=== PATIENT | female | born 1995 | race African-American/Black ===

== ENCOUNTER 2018-03-15 20:10 | Emergency (ER) | payer SELFPAY ==
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
[2018-03-15] MEDS ORDERED: IBUPROFEN 400 MG TAB ONE (21:06)
== END 2018-03-15 21:20 | disposition home or self-care (01) ==
LOC: ER 20:10
DX: S29.012A Strain of muscle and tendon of back wall of thorax, initial encounter (principal); V49.59XA Passenger injured in collision with other motor vehicles in traffic accident, initial encounter; Y93.I9 Activity, other involving external motion; Y92.410 Unspecified street and highway as the place of occurrence of the external cause
CPT/HCPCS: 99283